=== PATIENT | male | born 1990 | race Caucasian/White ===

== ENCOUNTER 2017-03-06 22:23 | Emergency (ER) | payer SELFPAY ==
[~2017-03-06] VITALS: Ht 167.6 cm; Wt 54.4 kg
[2017-03-06 22:37] VITALS: BP 167/96
[2017-03-06] MEDS ORDERED: NAPR500T PO (22:51)
[2017-03-06] MEDS ORDERED: CYCL10TA2 PO (22:51)
--- NOTE | 2017-03-06 22:52 | PHYS DOC ---
Past Medical History Past Medical History: Other Additional Past Medical Histor: chronic back pain Past Surgical History: No Surgical History Alcohol Use: None Drug Use: None Adult General Chief Complaint Chief Complaint: BACK PAIN - NO INJURY HPI HPI Patient is a 26 year old male presents to the emergency department with complaints of acute exacerbation of his chronic back pain. Patient states he's been under the care of his primary care provider and is recommended that he see a neurologist. Patient states he has not seen a neurologist because ", single father". He is still eyes loss of bowel or bladder control. Denies loss of function of lower extremity. He is here seeking pain relief. Review of Systems Review of Systems Constitutional: Denies fever or chills [] Eyes: Denies change in visual acuity, redness, or eye pain [] HENT: Denies nasal congestion or sore throat [] Respiratory: Denies cough or shortness of breath [] Cardiovascular: No additional information not addressed in HPI [] GI: Denies abdominal pain, nausea, vomiting, bloody stools or diarrhea [] : Denies dysuria or hematuria [] Musculoskeletal: Low back pain Integument: Denies rash or skin lesions [] Neurologic: Denies headache, focal weakness or sensory changes [] Endocrine: Denies polyuria or polydipsia [] Current Medications Current Medications Current Medications Medications (Trade) Dose Ordered Sig/Дмитрий Start Time Stop Time Status Last Admin Dose Admin Cyclobenzaprine HCl (Flexeril) 10 mg 1X ONCE 03/06/17 23:00 03/06/17 23:01 DC Fentanyl Citrate (Fentanyl 2ml Vial) 50 mcg 1X ONCE 03/06/17 23:00 03/06/17 23:01 DC Naproxen (Naprosyn) 500 mg ONCE ONCE 03/06/17 23:00 03/06/17 23:01 DC Allergies Allergies Allergies Coded Allergies Type Severity Reaction Last Updated Verified No Known Drug Allergies 03/06/17 No Physical Exam Physical Exam Constitutional: Well developed, well nourished, no acute distress, non-toxic appearance. [] HENT: Normocephalic, atraumatic, bilateral external ears normal, oropharynx moist, no oral exudates, nose normal. [] Eyes: PERRLA, EOMI, conjunctiva normal, no discharge. [] Neck: Normal range of motion, no tenderness, supple, no stridor. [] Cardiovascular:Heart rate regular rhythm, no murmur [] Lungs & Thorax: Bilateral breath sounds clear to auscultation [] Abdomen: Bowel sounds normal, soft, no tenderness, no masses, no pulsatile masses. [] Skin: Warm, dry, no erythema, no rash. [] Back: Mild tenderness in the lumbar region without midline tenderness. Negative straight raise leg test. No saddle anesthesia. Muscle strength is 5 over 5.] Extremities: No tenderness, no cyanosis, no clubbing, ROM intact, no edema. [] Neurologic: Alert and oriented X 3, normal motor function, normal sensory function, no focal deficits noted. [] Psychologic: Affect normal, judgement normal, mood normal. [] Current Patient Data Vital Signs Vital Signs Date Time Temp Pulse Resp B/P (MAP) Pulse Ox O2 Delivery O2 Flow Rate FiO2 03/06/17 22:37 98.0 100 20 99 Room Air 98.0 EKG EKG [] Radiology/Procedures Radiology/Procedures [] Course & Med Decision Making Course & Med Decision Making Patient will be given fentanyl 50 mcg IM, Flexeril 10 mg by mouth and Naprosyn 500 mg by mouth in the emergency department. I will discharge the patient on Flexeril and Naprosyn. He'll be provided with follow-up resource for neurology. He is returning emergency Department for new symptoms or concerns or worsening of current condition. Pertinent Labs and Imaging studies reviewed. (See chart for details) [] Dragon Disclaimer Dragon Disclaimer This electronic medical record was generated, in whole or in part, using a voice recognition dictation system. Departure Departure Impression: Primary Impression: Acute exacerbation of chronic low back pain Disposition: 01 HOME, SELF-CARE Condition: STABLE Referrals: [facility] Patient Instructions: Chronic Back Pain Scripts Naproxen (NAPROSYN) 500 Mg Tablet 500 MG PO BID Y for PAIN, #20 TAB Prov: JD POTTS APRN 03/06/17 Cyclobenzaprine Hcl (CYCLOBENZAPRINE HCL) 10 Mg Tablet 10 MG PO TID, #20 TAB Prov: JD POTTS APRN 03/06/17 JD POTTS APRN Mar 06, 2017 22:52
[2017-03-06] MEDS ORDERED: CYCLOBENZAPRINE 10 MG TABLET. PO ONE (23:00)
[2017-03-06] MEDS ORDERED: NAPROXEN 500 MG TABLET PO ONE (23:00)
[2017-03-06] MEDS ORDERED: fentaNYL PF VIAL 100 MCG/2 ML VIAL IM ONE (23:00)
== END 2017-03-06 23:49 | disposition home or self-care (01) ==
LOC: ER 22:23
DX: G89.29 Other chronic pain (principal); M54.5 Low back pain
CPT/HCPCS: 96372; 99283; J3010